=== PATIENT | female | born 1950 | race Caucasian/White ===

== ENCOUNTER → 2018-11-03 | Outpatient (CLI) | payer MEDICARE | END | disposition home or self-care (01) | LOC: CFH 09:45 | PROVIDERS: ATTEND Nurse Practitioner | DX: Z12.2 Encounter for screening for malignant neoplasm of respiratory organs (principal); R91.1 Solitary pulmonary nodule; I25.10 Atherosclerotic heart disease of native coronary artery without angina pectoris; I35.8 Other nonrheumatic aortic valve disorders; Z98.82 Breast implant status | CPT/HCPCS: G0297 ==

== ENCOUNTER → 2018-12-26 | Outpatient (CLI) | payer MEDICARE | END | disposition home or self-care (01) | LOC: CFH 13:17 | PROVIDERS: ATTEND Physician Assistant | DX: M85.88 Other specified disorders of bone density and structure, other site (principal) | CPT/HCPCS: 77080 ==

== ENCOUNTER 2019-01-10 14:07 | Outpatient (CLI) | payer MEDICARE ==
[2019-01-10] MEDS ORDERED: GADOBUTROL 7.5 MMOL/7.5 ML PFS ONE (15:29)
== END 2019-01-10 23:59 | disposition home or self-care (01) ==
LOC: CFH 14:07
PROVIDERS: ATTEND Physician Assistant
DX: Z98.82 Breast implant status (principal)
CPT/HCPCS: A9585; C8908; C8937

== ENCOUNTER 2019-01-25 15:42 | Outpatient (CLI) | payer MEDICARE ==
[2019-01-25 16:15] LABS: CREATININE 0.76 mg/dL (0.55-1.02)
== END 2019-01-25 23:59 | disposition home or self-care (01) ==
LOC: LAB 15:42
PROVIDERS: ATTEND Surgery
DX: Z01.812 Encounter for preprocedural laboratory examination (principal); C50.212 Malignant neoplasm of upper-inner quadrant of left female breast
CPT/HCPCS: 36415; 82565; 84520

== ENCOUNTER → 2019-01-26 | Outpatient (CLI) | payer MEDICARE ==
[~2019-01-26] MED LIST: OMNIPAQUE 350 MG/ML, 100ML BOTTLE ONE
== END | disposition home or self-care (01) ==
LOC: PETCFH 07:23
PROVIDERS: ATTEND Surgery
DX: C50.112 Malignant neoplasm of central portion of left female breast (principal); J43.2 Centrilobular emphysema; N28.1 Cyst of kidney, acquired; K44.9 Diaphragmatic hernia without obstruction or gangrene; I70.0 Atherosclerosis of aorta; M85.89 Other specified disorders of bone density and structure, multiple sites; M47.817 Spondylosis without myelopathy or radiculopathy, lumbosacral region; R91.1 Solitary pulmonary nodule
CPT/HCPCS: 71260; 74177; 78306; A9503; Q9967

== ENCOUNTER 2019-02-06 20:47 | Day surgery (SDC) | payer MEDICARE ==
[2019-02-06 17:24] VITALS: BP 137/75
[~2019-02-06 20:47] MED LIST changes: +ACETAMINOPHEN 500 MG TABLET PO ONE; +ALBUTEROL/IPRATROPIUM 2.5MG/0.5MG, 3 ML NPPB PRN; +BUPIVACAINE/PF 0.5% INFIL ONE; +CEFAZOLIN 1,000 MG ONE; +DEXAMETHASONE 4 MG/ML, 1ML ONE; +FENTANYL PF 100 MCG/2ML IV PRN; +FENTANYL PF 100 MCG/2ML ONE; +GABAPENTIN 300 MG CAPSULE PO STA; +MEPERIDINE/PF 25MG/0.5ML IVPush PRN; +METOPROLOL 1 MG/ML, 5ML IV PRN; +MIDAZOLAM 1 MG/ML, 2ML IV PRN; -OMNIPAQUE 350 MG/ML, 100ML BOTTLE ONE; +ONDANSETRON 2MG/ML, 2ML IV PRN; +ONDANSETRON 2MG/ML, 2ML IVPush STA; +ONDANSETRON 2MG/ML, 2ML ONE; +OXYcodone 5 MG/5 ML ORAL.SOL UDC ONE; +OXYcodone 5 MG/5 ML ORAL.SOL UDC PO PRN; +PLEASE ENTER HEIGHT AND WEIGHT MC SCH; +PROMETHAZINE 25 MG/ML, 1ML IV PRN; +PROPOFOL 10 MG/ML, 20ML ONE; +hydrALAzine 20 MG/ML, 1ML IV PRN
== END 2019-02-06 21:59 | disposition home or self-care (01) ==
LOC: SDC 20:47
PROVIDERS: ATTEND Internal Medicine Hematology & Oncology
DX: Z45.2 Encounter for adjustment and management of vascular access device (principal); C50.912 Malignant neoplasm of unspecified site of left female breast; G89.29 Other chronic pain; H40.9 Unspecified glaucoma; E03.9 Hypothyroidism, unspecified; F17.210 Nicotine dependence, cigarettes, uncomplicated; Z90.710 Acquired absence of both cervix and uterus; Z98.890 Other specified postprocedural states; Z72.89 Other problems related to lifestyle; Z88.1 Allergy status to other antibiotic agents; Z88.8 Allergy status to other drugs, medicaments and biological substances
CPT/HCPCS: 36561; 71045; 77001; 93306; C1788; J0690; J1100; J2405; J2704; J3010; 76000; J1644

== ENCOUNTER 2019-05-29 13:32 | Outpatient (CLI) | payer MEDICARE | END 2019-05-29 23:59 | disposition home or self-care (01) | LOC: CFH 13:32 | PROVIDERS: ATTEND Internal Medicine Hematology & Oncology | DX: Z51.11 Encounter for antineoplastic chemotherapy (principal); Z51.12 Encounter for antineoplastic immunotherapy; I08.0 Rheumatic disorders of both mitral and aortic valves; C50.812 Malignant neoplasm of overlapping sites of left female breast; D70.1 Agranulocytosis secondary to cancer chemotherapy | CPT/HCPCS: 0399T; 93306 ==

== ENCOUNTER → 2019-06-05 | Outpatient (CLI) | payer MEDICARE ==
[~2019-06-05] MED LIST changes: -ACETAMINOPHEN 500 MG TABLET PO ONE; -ALBUTEROL/IPRATROPIUM 2.5MG/0.5MG, 3 ML NPPB PRN; -BUPIVACAINE/PF 0.5% INFIL ONE; -CEFAZOLIN 1,000 MG ONE; -DEXAMETHASONE 4 MG/ML, 1ML ONE; -FENTANYL PF 100 MCG/2ML IV PRN; -FENTANYL PF 100 MCG/2ML ONE; -GABAPENTIN 300 MG CAPSULE PO STA; +GADOTERATE 7.5 MMOL/15 ML VIAL ONE; -MEPERIDINE/PF 25MG/0.5ML IVPush PRN; -METOPROLOL 1 MG/ML, 5ML IV PRN; -MIDAZOLAM 1 MG/ML, 2ML IV PRN; -ONDANSETRON 2MG/ML, 2ML IV PRN; -ONDANSETRON 2MG/ML, 2ML IVPush STA; -ONDANSETRON 2MG/ML, 2ML ONE; -OXYcodone 5 MG/5 ML ORAL.SOL UDC ONE; -OXYcodone 5 MG/5 ML ORAL.SOL UDC PO PRN; -PLEASE ENTER HEIGHT AND WEIGHT MC SCH; -PROMETHAZINE 25 MG/ML, 1ML IV PRN; -PROPOFOL 10 MG/ML, 20ML ONE; -hydrALAzine 20 MG/ML, 1ML IV PRN
== END | disposition home or self-care (01) ==
LOC: CFH 06-01 09:30
PROVIDERS: ATTEND Surgery
DX: C50.212 Malignant neoplasm of upper-inner quadrant of left female breast (principal); Z87.891 Personal history of nicotine dependence
CPT/HCPCS: A9575; C8908; C8937

== ENCOUNTER → 2019-06-22 | Outpatient (CLI) | payer MEDICARE ==
[~2019-06-22] MED LIST changes: -GADOTERATE 7.5 MMOL/15 ML VIAL ONE; +OMNIPAQUE 350 MG/ML, 100ML BOTTLE ONE
== END | disposition home or self-care (01) ==
LOC: RAD 11:45
PROVIDERS: ATTEND Internal Medicine Hematology & Oncology
DX: C50.812 Malignant neoplasm of overlapping sites of left female breast (principal); J43.2 Centrilobular emphysema; I70.0 Atherosclerosis of aorta
CPT/HCPCS: 71275; Q9967

== ENCOUNTER 2019-07-05 08:13 | Day surgery (SDC) | payer MEDICARE ==
[2019-07-03 13:01] LABS: MEAN CORPUSCULAR HEMOGLOBIN 37.3 pg (27.0-34.8); MEAN CORPUSCULAR HGB CONC 33.1 g/dL (32.4-35.8); MEAN CORPUSCULAR VOLUME 112.7 fL (80-100); MEAN PLATELET VOLUME 7.8 fL (7.4-10.4); PLATELET COUNT 223 x10^3/uL (130-400); RED BLOOD COUNT 3.42 x10^6/uL (3.82-5.3); RED CELL DISTRIBUTION WIDTH 13.4 % (9.6-15.2)
[2019-07-03 13:10] LABS: CHLORIDE 106 mmol/L (98-107)
[2019-07-03 13:20] LABS: ALANINE AMINOTRANSFERASE 30 U/L (12-78); ALBUMIN 3.4 g/dL (3.4-5.0); ALKALINE PHOSPHATASE 62 U/L (45-117); ANION GAP 5 mmol/L (5-15); BILIRUBIN,TOTAL 0.8 mg/dL (0.2-1.0); CALCIUM 9.1 mg/dL (8.5-10.1); CREATININE 0.65 mg/dL (0.55-1.02); TOTAL PROTEIN 6.7 g/dL (6.4-8.2)
[2019-07-03 13:40] LABS: BASOPHILS # (AUTO) 0.06 x10^3/uL (0-0.1); BASOPHILS % (AUTO) 1 % (0-1); EOSINOPHILS % (AUTO) 3 % (1-7); LYMPHOCYTES # (AUTO) 1.33 x10^3/uL (1-3.4); LYMPHOCYTES % (AUTO) 22 % (22-44); MD SCAN; MONOCYTES # (AUTO) 0.54 x10^3/uL (0.2-0.8); MONOCYTES % (AUTO) 9 % (2-9); NEUTROPHILS # (AUTO) 3.82 x10^3/uL (1.8-6.8); NEUTROPHILS % (AUTO) 64 % (42-75)
[~2019-07-05] VITALS: Ht 156.2 cm; Wt 54.2 kg
[~2019-07-05 08:13] MED LIST changes: +BACITRACIN 50,000 UNIT ONE; +BUPIVACAINE/PF 0.5% ONE; +CEFAZOLIN 1,000 MG ONE; +DORZ10DR27 EACHEYE; +EPINEPHRINE 1 MG/ML, 1ML ONE; +GENTAMICIN 80 MG/2 ML ONE; +ISOSULFAN BLUE 10 MG/ML, 5ML IV ONE; +LIGH1DRO EACHEYE; -OMNIPAQUE 350 MG/ML, 100ML BOTTLE ONE; +[UNRECOGNIZED DRUG - OTHER] PO; +[UNRECOGNIZED DRUG - OTHER] PO; +[UNRECOGNIZED DRUG - OTHER] PO; +collagen PO; +natural thyroid PO; +tumeric PO; +vitamin D PO; +vitamin c PO
[2019-07-05] MEDS ORDERED: LIDOCAINE-MPF 1%, 5ML ONE (08:23)
[2019-07-05] MEDS ORDERED: ONDANSETRON ODT 8 MG PO ONE (08:30)
[2019-07-05] MEDS ORDERED: GABAPENTIN 300 MG CAPSULE PO ONE (08:30)
[2019-07-05] MEDS ORDERED: SCOPOLAMINE PATCH, 1.5MG PATCH.TD72 TD ONE (08:30)
[2019-07-05] MEDS ORDERED: ACETAMINOPHEN 500 MG TABLET PO ONE (08:30)
[2019-07-05] MEDS ORDERED: LACTATED RINGERS 1,000 ML IV SCH (09:20)
[2019-07-05 09:22] VITALS: BP 148/70
[2019-07-05] MEDS ORDERED: MIDAZOLAM 1 MG/ML, 2ML ONE (11:37)
[2019-07-05] MEDS ORDERED: FENTANYL PF 250 MCG/5ML ONE (11:38)
[2019-07-05] MEDS ORDERED: ROCURONIUM 10MG/ML,5ML ONE (13:00)
[2019-07-05] MEDS ORDERED: ONDANSETRON 2MG/ML, 2ML ONE (13:00)
[2019-07-05] MEDS ORDERED: PROPOFOL 10 MG/ML, 20ML ONE (13:00)
[2019-07-05] MEDS ORDERED: CEFAZOLIN 1,000 MG ONE (13:00)
[2019-07-05] MEDS ORDERED: DEXAMETHASONE 4 MG/ML, 1ML ONE (13:00)
[2019-07-05] MEDS ORDERED: PROPOFOL 50 ML ONE (13:00)
[2019-07-05] MEDS ORDERED: SUCCINYLCHOLINE 20 MG/ML, 10ML ONE (13:00)
[2019-07-05] MEDS ORDERED: NEOSTIGMINE 1 MG/ML, 10ML ONE (13:00)
[2019-07-05] MEDS ORDERED: LABETALOL 5MG/ML, 20ML IV PRN (13:30)
[2019-07-05] MEDS ORDERED: OXYcodone 5 MG/5 ML ORAL.SOL UDC PO PRN (13:30)
[2019-07-05] MEDS ORDERED: FENTANYL PF 100 MCG/2ML IV PRN (13:30)
[2019-07-05] MEDS ORDERED: DIAZEPAM 5 MG/ML, 2ML IVPush PRN (13:30)
[2019-07-05] MEDS ORDERED: HYDROmorphone 2 MG/ML, 1ML IVPush PRN (13:30)
[2019-07-05] MEDS ORDERED: ALBUTEROL SULFATE 2.5 MG/3 ML NPPB PRN (13:30)
[2019-07-05] MEDS ORDERED: PROMETHAZINE 25 MG/ML, 1ML IV PRN (13:30)
[2019-07-05] MEDS ORDERED: hydrALAzine 20 MG/ML, 1ML IV PRN (13:30)
[2019-07-05] MEDS ORDERED: ACETAMINOPHEN 325 MG TABLET PO PRN (13:30)
== END 2019-07-05 18:50 | disposition home or self-care (01) ==
LOC: OUT 08:13 → EDSTATUS 12:30 → OUT 18:50
PROVIDERS: ATTEND Surgery
DX: C50.812 Malignant neoplasm of overlapping sites of left female breast (principal); T85.44XA Capsular contracture of breast implant, initial encounter; N60.32 Fibrosclerosis of left breast; N60.22 Fibroadenosis of left breast; E03.9 Hypothyroidism, unspecified; H40.9 Unspecified glaucoma; F17.210 Nicotine dependence, cigarettes, uncomplicated; Z79.890 Hormone replacement therapy; Z79.899 Other long term (current) drug therapy; Z92.21 Personal history of antineoplastic chemotherapy; Z90.49 Acquired absence of other specified parts of digestive tract; Z90.710 Acquired absence of both cervix and uterus; Z98.890 Other specified postprocedural states; Y83.8 Other surgical procedures as the cause of abnormal reaction of the patient, or of later complication, without mention of misadventure at the time of the procedure
CPT/HCPCS: 15777; 15860; 19303; 19340; 19371; 36415; 38525; 38792; 76098; 80053; 85025; 88307; A9541; C1729; C1762; C1789; J0171; J0690; J1100; J1580; J2250; J2405; J2704; J3010; J7120; Q0162; 88333; J2710; J0330

== ENCOUNTER → 2019-08-02 | Outpatient (CLI) | payer MEDICARE ==
[~2019-08-02] MED LIST changes: -BACITRACIN 50,000 UNIT ONE; -BUPIVACAINE/PF 0.5% ONE; -CEFAZOLIN 1,000 MG ONE; -EPINEPHRINE 1 MG/ML, 1ML ONE; -GENTAMICIN 80 MG/2 ML ONE; -ISOSULFAN BLUE 10 MG/ML, 5ML IV ONE
== END | disposition home or self-care (01) ==
LOC: CFH 12:27
PROVIDERS: ATTEND Internal Medicine Hematology & Oncology
DX: C50.812 Malignant neoplasm of overlapping sites of left female breast (principal); I35.8 Other nonrheumatic aortic valve disorders; I34.0 Nonrheumatic mitral (valve) insufficiency
CPT/HCPCS: 93308; 93321; 93325

== ENCOUNTER 2019-12-06 11:30 | Day surgery (SDC) | payer MEDICARE ==
[2019-12-03 15:42] LABS: BASOPHILS # (AUTO) 0.01 x10^3/uL (0-0.1); BASOPHILS % (AUTO) 0 % (0-1); EOSINOPHILS # (AUTO) 0.09 x10^3/uL (0-0.4); EOSINOPHILS % (AUTO) 2 % (1-7); LYMPHOCYTES # (AUTO) 2.04 x10^3/uL (1-3.4); LYMPHOCYTES % (AUTO) 35 % (22-44); MD NO; MEAN CORPUSCULAR HEMOGLOBIN 32.9 pg (27.0-34.8); MEAN CORPUSCULAR HGB CONC 33.4 g/dL (32.4-35.8); MEAN CORPUSCULAR VOLUME 98.5 fL (80-100); MEAN PLATELET VOLUME 7.9 fL (7.4-10.4); MONOCYTES # (AUTO) 0.44 x10^3/uL (0.2-0.8); MONOCYTES % (AUTO) 8 % (2-9); NEUTROPHILS # (AUTO) 3.31 x10^3/uL (1.8-6.8); NEUTROPHILS % (AUTO) 56 % (42-75); PLATELET COUNT 207 x10^3/uL (130-400); RED BLOOD COUNT 4.45 x10^6/uL (3.82-5.3); RED CELL DISTRIBUTION WIDTH 14.1 % (9.6-15.2)
[~2019-12-06] VITALS: Ht 156.2 cm; Wt 57.4 kg
[~2019-12-06 11:30] MED LIST changes: +ANAS1TAB49 PO; +ASCO10004 PO; +CARB1DRO EACHEYE; +CHOL10003 PO; +HYDRO EYE PO; +LACT1CAP37 PO; +LORA10TA75 PO; +TRAS150V IV; +TURM500C4 PO; +[UNRECOGNIZED DRUG - OTHER] PO
[2019-12-06 11:44] VITALS: BP 149/76
[2019-12-06] MEDS ORDERED: LACTATED RINGERS 1,000 ML IV SCH ×2 (11:48→19:00)
[2019-12-06] MEDS ORDERED: CHLORHEXIDINE 15 ML UDC MM ONE (12:00)
[2019-12-06] MEDS ORDERED: GENTAMICIN 80 MG/2 ML ONE (12:29)
[2019-12-06] MEDS ORDERED: BUPIVACAINE/PF-EPI 0.5% 1:200K ONE (12:29)
[2019-12-06] MEDS ORDERED: CEFAZOLIN 1,000 MG ONE ×2 (12:29→14:25)
[2019-12-06] MEDS ORDERED: SODIUM BICARBONATE 1 MEQ/ML, 50ML VIAL ONE (12:29)
[2019-12-06] MEDS ORDERED: LIDOCAINE-MPF 2% ,5ML ONE ×2 (12:30→13:12)
[2019-12-06] MEDS ORDERED: EPINEPHRINE 1 MG/ML, 1ML ONE (12:30)
[2019-12-06] MEDS ORDERED: BACITRACIN 50,000 UNIT ONE (12:30)
[2019-12-06] MEDS ORDERED: FENTANYL PF 100 MCG/2ML ONE ×3 (13:11→17:05)
[2019-12-06] MEDS ORDERED: ONDANSETRON 2MG/ML, 2ML ONE (13:12)
[2019-12-06] MEDS ORDERED: MIDAZOLAM 1 MG/ML, 2ML ONE (13:12)
[2019-12-06] MEDS ORDERED: PROPOFOL 10 MG/ML, 20ML ONE (13:12)
[2019-12-06] MEDS ORDERED: DEXAMETHASONE 4 MG/ML, 1ML ONE ×2 (13:12)
[2019-12-06] MEDS ORDERED: SUCCINYLCHOLINE 20 MG/ML, 10ML ONE (13:14)
[2019-12-06] MEDS ORDERED: OXYcodone 5 MG/5 ML ORAL.SOL UDC PO PRN (15:00)
[2019-12-06] MEDS ORDERED: ACETAMINOPHEN 325 MG TABLET PO PRN (15:00)
[2019-12-06] MEDS ORDERED: PROMETHAZINE 25 MG/ML, 1ML IVPush PRN (15:00)
[2019-12-06] MEDS ORDERED: HYDROmorphone 1 MG/ML, 1ML INJ IVPush PRN (15:00)
[2019-12-06] MEDS ORDERED: FENTANYL PF 100 MCG/2ML IV PRN (15:00)
[2019-12-06] MEDS ORDERED: OXYcodone 5 MG/5 ML ORAL.SOL UDC ONE (17:05)
[2019-12-06] MEDS ORDERED: HYDROmorphone 1 MG/ML, 1ML INJ ONE (17:15)
[2019-12-06] MEDS ORDERED: OXYcodone/APAP 5/325MG TABLET PO PRN (19:00)
[2019-12-06] MEDS ORDERED: DIPHENHYDRAMINE 50 MG/ML, 1ML IVPush PRN (19:00)
[2019-12-06] MEDS ORDERED: ONDANSETRON 2MG/ML, 2ML IVPush PRN (19:00)
[2019-12-06] MEDS ORDERED: HYDROmorphone 2 MG/ML, 1ML IV PRN (19:00)
== END 2019-12-06 21:00 | disposition home or self-care (01) ==
LOC: OUT 11:30 → 4NE 18:15 → OUT 21:00
PROVIDERS: ATTEND Plastic Surgery
DX: N65.1 Disproportion of reconstructed breast (principal); Z79.890 Hormone replacement therapy; Z79.899 Other long term (current) drug therapy; Z85.3 Personal history of malignant neoplasm of breast; Z87.891 Personal history of nicotine dependence; Z88.8 Allergy status to other drugs, medicaments and biological substances; Z90.13 Acquired absence of bilateral breasts and nipples; Z90.49 Acquired absence of other specified parts of digestive tract; Z90.710 Acquired absence of both cervix and uterus; Z98.890 Other specified postprocedural states; Z80.8 Family history of malignant neoplasm of other organs or systems
CPT/HCPCS: 11970; 19380; 36415; 85025; 93005; C1729; C1789; J0171; J0330; J0690; J1100; J1170; J1580; J2250; J2405; J2704; J3010; J7120; U0001; G0378

== ENCOUNTER → 2020-01-17 | Outpatient (CLI) | payer MEDICARE | END | disposition home or self-care (01) | LOC: CVU 12:25 | PROVIDERS: ATTEND Internal Medicine Hematology & Oncology | DX: C50.812 Malignant neoplasm of overlapping sites of left female breast (principal); I35.8 Other nonrheumatic aortic valve disorders | CPT/HCPCS: 93306; 93356 ==

== ENCOUNTER → 2020-02-22 | Outpatient (CLI) | payer MEDICARE ==
[2020-02-22 21:13] LABS: CHLORIDE 105 mmol/L (98-107)
[2020-02-22 21:50] LABS: ALANINE AMINOTRANSFERASE 28 U/L (12-78); ALBUMIN 3.7 g/dL (3.4-5.0); ALKALINE PHOSPHATASE 80 U/L (45-117); ANION GAP 6 mmol/L (5-15); CALCIUM 9.5 mg/dL (8.5-10.1); CHOL/HDL RATIO 1.7; CHOLESTEROL, TOTAL 178 mg/dL (140-239); CREATININE 0.78 mg/dL (0.55-1.02); HDL CHOL % 58 % (28-40); HDL CHOLESTEROL (DIRECT) 103 mg/dL (40-60); LDL CHOLESTEROL,CALCULATED 68 mg/dL (54-169); LDL/HDL RATIO 0.7 (0.5-3.0); TOTAL PROTEIN 7.2 g/dL (6.4-8.2); TRIGLYCERIDES 36 mg/dL (50-200); VLDL CHOLESTEROL 7 mg/dL (0-25)
== END | disposition home or self-care (01) ==
LOC: CFH 09:13
PROVIDERS: ATTEND Physician Assistant
DX: C50.812 Malignant neoplasm of overlapping sites of left female breast (principal); E03.9 Hypothyroidism, unspecified; E78.5 Hyperlipidemia, unspecified; M85.80 Other specified disorders of bone density and structure, unspecified site
CPT/HCPCS: 36415; 80053; 80061; 82306; 84443

== ENCOUNTER → 2020-03-05 | Outpatient (CLI) | payer MEDICARE | END | disposition home or self-care (01) | LOC: CFH 13:36 | PROVIDERS: ATTEND Physician Assistant | DX: Z12.2 Encounter for screening for malignant neoplasm of respiratory organs (principal); Z87.891 Personal history of nicotine dependence; R91.1 Solitary pulmonary nodule | CPT/HCPCS: G0297 ==

== ENCOUNTER → 2020-12-03 | Outpatient (CLI) | payer MEDICARE ==
[~2020-12-03] MED LIST changes: +ASCO100018 PO; -ASCO10004 PO
== END | disposition home or self-care (01) ==
LOC: CFH 07:46
PROVIDERS: ATTEND Internal Medicine Cardiovascular Disease
DX: R00.2 Palpitations (principal); R94.30 Abnormal result of cardiovascular function study, unspecified; I10 Essential (primary) hypertension
CPT/HCPCS: 78452; 93017; A9502

== ENCOUNTER → 2020-12-09 | Outpatient (CLI) | payer MEDICARE | END | disposition home or self-care (01) | LOC: CFH 08:11 | PROVIDERS: ATTEND Physician Assistant | DX: C50.812 Malignant neoplasm of overlapping sites of left female breast (principal); M85.88 Other specified disorders of bone density and structure, other site; M85.9 Disorder of bone density and structure, unspecified | CPT/HCPCS: 77080 ==

== ENCOUNTER 2021-02-27 17:11 | Day surgery (SDC) | payer MEDICARE ==
[~2021-02-27] VITALS: Ht 157.5 cm; Wt 57.2 kg
[~2021-02-27 17:11] MED LIST changes: -LACT1CAP37 PO; +LACT1CAP47 PO
[2021-02-27] MEDS ORDERED: LACTATED RINGERS 1,000 ML IV SCH ×2 (17:30→22:30)
[2021-02-27] MEDS ORDERED: CHLORHEXIDINE 15 ML UDC PO ONE (17:30)
[2021-02-27 17:32] VITALS: BP 122/77
[2021-02-27] MEDS ORDERED: FENTANYL PF 250 MCG/5ML ONE (17:34)
[2021-02-27] MEDS ORDERED: DEXAMETHASONE 4 MG/ML, 1ML ONE (17:38)
[2021-02-27] MEDS ORDERED: ONDANSETRON 2MG/ML, 2ML ONE (17:38)
[2021-02-27] MEDS ORDERED: NEOSTIGMINE 1 MG/ML, 10ML ONE (17:38)
[2021-02-27] MEDS ORDERED: ROCURONIUM 10MG/ML,5ML ONE (17:38)
[2021-02-27] MEDS ORDERED: PROPOFOL 10 MG/ML, 20ML ONE (17:38)
[2021-02-27] MEDS ORDERED: GLYCOPYRROLATE 0.2MG/1ML, 5ML ONE (17:38)
[2021-02-27] MEDS ORDERED: CEFAZOLIN 1,000 MG ONE ×2 (17:38→17:56)
[2021-02-27] MEDS ORDERED: CYCL1DRO EACHEYE (17:48)
[2021-02-27] MEDS ORDERED: BONE PO (17:48)
[2021-02-27] MEDS ORDERED: ZINC220T2 PO (17:54)
[2021-02-27] MEDS ORDERED: GENTAMICIN 80 MG/2 ML ONE (17:56)
[2021-02-27] MEDS ORDERED: EPINEPHRINE 1 MG/ML, 1ML ONE (17:56)
[2021-02-27] MEDS ORDERED: BUPIVACAINE/PF 0.5% ONE (17:56)
[2021-02-27] MEDS ORDERED: TIOT4MIS5 INH (17:58)
[2021-02-27] MEDS ORDERED: ALBU8.5H8 INH (17:58)
[2021-02-27] MEDS ORDERED: CARB1DRO EACHEYE (17:58)
[2021-02-27] MEDS ORDERED: morphine SULFATE 10 MG/ML, 1ML IVPush PRN (18:00)
[2021-02-27] MEDS ORDERED: HYDROmorphone 1 MG/ML, 1ML INJ IVPush PRN (18:00)
[2021-02-27] MEDS ORDERED: HALOPERIDOL 5 MG/ML IV PRN (18:00)
[2021-02-27] MEDS ORDERED: OXYcodone 5 MG/5 ML ORAL.SOL UDC PO PRN (18:00)
[2021-02-27] MEDS ORDERED: ACETAMINOPHEN 325 MG TABLET PO PRN (18:00)
[2021-02-27] MEDS ORDERED: LABETALOL 5MG/ML, 20ML IV PRN (18:00)
[2021-02-27] MEDS ORDERED: FENTANYL PF 100 MCG/2ML IV PRN (18:00)
[2021-02-27] MEDS ORDERED: PROMETHAZINE 25 MG/ML, 1ML IVPush PRN (18:00)
[2021-02-27] MEDS ORDERED: hydrALAzine 20 MG/ML, 1ML IV PRN (18:00)
[2021-02-27] MEDS ORDERED: ACETAMINOPHEN 650 MG/20.3 ML UDC ONE (20:31)
[2021-02-27] MEDS ORDERED: OXYcodone 5 MG/5 ML ORAL.SOL UDC ONE (20:31)
[2021-02-27 20:45] VITALS: BP 125/60
[2021-02-27] MEDS ORDERED: HYDROcodone/APAP 5/325 TABLET PO PRN (22:30)
[2021-02-27] MEDS ORDERED: HYDROmorphone 2 MG/ML, 1ML IV PRN (22:30)
[2021-02-27] MEDS ORDERED: ARTIFICIAL TEARS 15 DROP/ML BOTTLE EACHEYE PRN (22:30)
[2021-02-27] MEDS ORDERED: ONDANSETRON 2MG/ML, 2ML IVPush PRN (22:30)
[2021-02-27] MEDS ORDERED: DIPHENHYDRAMINE 50 MG/ML, 1ML IVPush PRN (22:30)
[2021-02-27] MEDS ORDERED: ALBUTEROL SULFATE 2.5 MG/3 ML NPPB PRN (22:30)
[2021-02-28] MEDS ORDERED: IPRATROPIUM 0.5 MG/2.5 ML INHA NPPB SCH (09:00)
[2021-02-28] MEDS ORDERED: ANASTROZOLE 1 MG TABLET PO SCH (09:00)
[2021-02-28] MEDS ORDERED: ZINC SULFATE 220 MG CAPSULE PO SCH (09:00)
[2021-02-28] MEDS ORDERED: LORATADINE 10 MG TABLET PO SCH (09:00)
[2021-02-28] MEDS ORDERED: CHOLECALCIFEROL 5,000u TAB PO SCH (09:00)
[2021-02-28] MEDS ORDERED: ASCORBIC ACID 500 MG TABLET PO SCH (09:00)
== END 2021-02-27 22:25 | disposition home or self-care (01) ==
LOC: OR 17:11 → 4NE 20:50 → OR 22:25
PROVIDERS: ATTEND Plastic Surgery
DX: N61.0 Mastitis without abscess (principal); Z20.822 Contact with and (suspected) exposure to COVID-19; Z79.899 Other long term (current) drug therapy; Z85.3 Personal history of malignant neoplasm of breast; Z88.8 Allergy status to other drugs, medicaments and biological substances; Z90.13 Acquired absence of bilateral breasts and nipples
CPT/HCPCS: 15570; 19371; 87635; 93005; C1729; J0171; J0690; J1100; J1580; J2405; J2704; J2710; J3010; G0378